=== PATIENT | female | born 1980 | race Caucasian/White ===

== ENCOUNTER 2017-01-12 23:39 | Emergency (ER) | payer OTHER ==
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
[~2017-01-12 23:39] MED LIST: ALPRAZOLAM PO; BACTRIM DS TABL1 TA1 PO; KLONOPIN1 MG PO; LASIX20 MG PO; LORTAB 5/500 TA1 TA1 PO; METRONIDAZOLE
== END 2017-01-13 00:39 | disposition home or self-care (01) ==
LOC: CFTX 23:39
DX: S00.83XA Contusion of other part of head, initial encounter (principal); R91.1 Solitary pulmonary nodule; Y04.0XXA Assault by unarmed brawl or fight, initial encounter; Y92.009 Unspecified place in unspecified non-institutional (private) residence as the place of occurrence of the external cause; F17.200 Nicotine dependence, unspecified, uncomplicated
CPT/HCPCS: 70450; 70486; 72125; 73030; 73070; 73110; 99284